=== PATIENT | male | born 1945 | race Caucasian/White ===

== ENCOUNTER 2018-11-17 16:50 | Emergency (ER) | payer BC, MEDICARE ==
[~2018-11-17 16:50] MED LIST: ALBU8.5H8 IH; AMLO5TAB9 PO; ATOR40TA69 PO; BISO5TAB2 PO; LEVO250T2 PO; METF-446 PO
[2018-11-17] MEDS ORDERED: CEFAZOLIN SODIUM 1 GM VIAL ONE (18:33)
[2018-11-17] MEDS ORDERED: LIDOCAINE HCL 1% 20 ML VIAL ONE (18:33)
[2018-11-17] MEDS ORDERED: TETANUS/DIPHTHERIA TOXOID [ADULT] 0.5 ML VIAL IM ONE (18:34)
[2018-11-17 19:00] LABS: BASOPHILS % (AUTO) 0.8 % (0.0-5.0); EOSINOPHILS % (AUTO) 2.8 % (0.0-8.0); HEMATOCRIT 30.9 % (42-54); LYMPHOCYTES % (AUTO) 14.5 % (21.0-51.0); MEAN CORPUSCULAR HEMOGLOBIN 30.4 pg (27.0-33.0); MEAN CORPUSCULAR HGB CONC 33.3 g/dL (32.0-36.0); MEAN CORPUSCULAR VOLUME 91.1 fL (79-99); MONOCYTES % (AUTO) 10.4 % (3.0-13.0); NEUTROPHILS % (AUTO) 71.5 % (40.0-77.0); PLATELET COUNT (AUTO) 160 K/uL (130-400); RED BLOOD CELL COUNT(AUTO) 3.39 MIL/uL (4.50-6.20); RED CELL DISTRIBUTION WIDTH 14.3 % (11.0-15.5); WHITE BLOOD COUNT (AUTO) 7.2 K/uL (4.8-10.8)
[2018-11-17 19:27] LABS: CREATININE 2.7 mg/dL (0.5-1.5)
[2018-11-17 19:32] LABS: ALBUMIN 3.8 g/dL (3.5-5.0); BILIRUBIN,TOTAL 0.8 mg/dL (0.2-1.0); TOTAL PROTEIN, SERUM 7.4 g/dL (6.0-8.3)
[2018-11-17 19:33] LABS: INR 1.09 (0.85-1.15); PARTIAL THROMBOPLASTIN TIME 27.3 SEC (26.3-35.5); PROTHROMBIN TIME 11.4 SEC (9.6-11.6)
[2018-11-17] MEDS ORDERED: OCTYL 2-CYANOACRYLATE 1 EACH TP ONE (20:18)
== END 2018-11-17 21:42 | disposition home or self-care (01) ==
LOC: EDH 16:50
DX: S98.141A Partial traumatic amputation of one right lesser toe, initial encounter (principal); I10 Essential (primary) hypertension; I25.10 Atherosclerotic heart disease of native coronary artery without angina pectoris; E11.9 Type 2 diabetes mellitus without complications; E78.5 Hyperlipidemia, unspecified; Z87.442 Personal history of urinary calculi; X58.XXXA Exposure to other specified factors, initial encounter; Y93.A1 Activity, exercise machines primarily for cardiorespiratory conditioning; Y92.89 Other specified places as the place of occurrence of the external cause; Y99.8 Other external cause status
CPT/HCPCS: 11730; 36415; 73660; 80053; 85025; 85610; 85730; 86850; 86900; 86901; 90471; 90714; 96372; 99285; A4218; J0690

== ENCOUNTER 2023-05-02 18:50 | Emergency (ER) | payer BC, OTHER ==
[~2023-05-02] VITALS: Ht 170.2 cm; Wt 72.6 kg
[~2023-05-02 18:50] MED LIST changes: +AMLO-257 PO; -AMLO5TAB9 PO; +BISO5TAB19 PO; -BISO5TAB2 PO
[2023-05-02 19:52] VITALS: BP 125/67; PULSE 77; RESP 20
[2023-05-02 21:57] LABS: BASOPHILS # (AUTO) 0.01 K/uL (0.00-0.20); BASOPHILS % (AUTO) 0.1 % (0.0-5.0); EOSINOPHILS # (AUTO) 0.02 K/uL (0.00-0.70); EOSINOPHILS % (AUTO) 0.2 % (0.0-8.0); HEMATOCRIT 45.1 % (42-54); IMMATURE GRANULOCYTE ABSOLUTE 0.07 K/uL (0-1); LYMPHOCYTES # (AUTO) 0.9 K/uL (1.0-4.8); LYMPHOCYTES % (AUTO) 7.5 % (21.0-51.0); MEAN CORPUSCULAR HEMOGLOBIN 32.1 pg (27.0-33.0); MEAN CORPUSCULAR HGB CONC 34.6 g/dL (32.0-36.0); MEAN CORPUSCULAR VOLUME 92.8 fL (79-99); MONOCYTES # (AUTO) 0.8 K/uL (0.1-1.0); MONOCYTES % (AUTO) 6.7 % (3.0-13.0); NEUTROPHILS # (AUTO) 10.5 K/uL (1.8-7.7); NEUTROPHILS % (AUTO) 84.9 % (40.0-77.0); PLATELET COUNT (AUTO) 164 K/uL (130-400); RED BLOOD CELL COUNT(AUTO) 4.86 MIL/uL (4.50-6.20); RED CELL DISTRIBUTION WIDTH 13.2 % (11.0-15.5); WHITE BLOOD COUNT (AUTO) 12.4 K/uL (4.8-10.8)
[2023-05-02 22:12] LABS: ALBUMIN 3.7 g/dL (3.5-5.0); BILIRUBIN,TOTAL 1.5 mg/dL (0.2-1.0); CREATININE 1.9 mg/dL (0.5-1.5); POTASSIUM 4.1 mmol/L (3.5-5.1); TOTAL PROTEIN, SERUM 7.3 g/dL (6.0-8.3)
[2023-05-02] MEDS ORDERED: IBUP-1493 PO (23:25)
== END 2023-05-02 23:50 | disposition home or self-care (01) ==
LOC: EDH 18:50
DX: S22.31XA Fracture of one rib, right side, initial encounter for closed fracture (principal); S09.90XA Unspecified injury of head, initial encounter; K80.20 Calculus of gallbladder without cholecystitis without obstruction; Z79.84 Long term (current) use of oral hypoglycemic drugs; Z85.46 Personal history of malignant neoplasm of prostate; W18.39XA Other fall on same level, initial encounter; Y92.89 Other specified places as the place of occurrence of the external cause; Y99.8 Other external cause status; Y93.01 Activity, walking, marching and hiking
CPT/HCPCS: 36415; 70450; 71250; 72125; 74176; 80053; 82150; 83690; 84484; 85025

== ENCOUNTER 2023-09-13 23:13 | Emergency (ER) | payer OTHER, BC ==
[~2023-09-13 23:13] MED LIST changes: +IBUP-1493 PO
[2023-09-14] MEDS ORDERED: MORPHINE 2 MG SYG IVP ONE
[2023-09-14 00:06] LABS: HEMATOCRIT 32.8 % (42-54); MEAN CORPUSCULAR HEMOGLOBIN 32.1 pg (27.0-33.0); MEAN CORPUSCULAR HGB CONC 35.4 g/dL (32.0-36.0); MEAN CORPUSCULAR VOLUME 90.9 fL (79-99); RED BLOOD CELL COUNT(AUTO) 3.61 MIL/uL (4.50-6.20); RED CELL DISTRIBUTION WIDTH 12.8 % (11.0-15.5); WHITE BLOOD COUNT (AUTO) 8.4 K/uL (4.8-10.8)
[2023-09-14 00:15] LABS: CREATININE 2.4 mg/dL (0.5-1.5); POTASSIUM 3.8 mmol/L (3.5-5.1)
[2023-09-14] MEDS ORDERED: OCTYL 2-CYANOACRYLATE 1 EACH TP ONE (00:40)
[2023-09-14 04:28] VITALS: BP 106/60; PULSE 72; RESP 16; O2SAT 98
[2023-09-19] MEDS ORDERED: RANO500T2 PO (06:47)
[2023-09-19] MEDS ORDERED: CLOP75TA32 PO (06:47)
[2023-09-19] MEDS ORDERED: LABE100T7 PO (06:48)
[2023-09-19] MEDS ORDERED: FLEC50TA3 PO (06:48)
[2023-09-19] MEDS ORDERED: AMLO2.5T4 PO (06:49)
[2023-09-19] MEDS ORDERED: ISOS30TA92 PO (06:49)
[2023-09-19] MEDS ORDERED: OMEP40CA21 PO (06:50)
[2023-09-19] MEDS ORDERED: PRED5TAB PO (06:51)
[2023-09-19] MEDS ORDERED: ABIR250T2 PO (06:52)
[2023-09-19] MEDS ORDERED: ferrous sulfate PO (06:54)
[2023-09-19] MEDS ORDERED: SODI650T PO (06:55)
[2023-09-19] MEDS ORDERED: POTA-200 PO (07:06)
[2023-09-19] MEDS ORDERED: VITA1TAB22 PO (07:07)
[2023-09-19] MEDS ORDERED: ATOR40TA71 PO (07:08)
[2023-09-19] MEDS ORDERED: EMPA25TA PO (07:09)
== END 2023-09-14 04:25 | disposition home or self-care (01) ==
LOC: EDH 23:13
DX: R07.81 Pleurodynia (principal); Z79.1 Long term (current) use of non-steroidal anti-inflammatories (NSAID); Z79.84 Long term (current) use of oral hypoglycemic drugs; Z85.46 Personal history of malignant neoplasm of prostate; W18.39XA Other fall on same level, initial encounter; Y93.89 Activity, other specified; Y92.89 Other specified places as the place of occurrence of the external cause; Y99.8 Other external cause status
CPT/HCPCS: 99285; 71250; 80048; 85027; 36415; 70450; 96374; 72170; 72125; J2270

== ENCOUNTER → 2023-11-14 | Outpatient (CLI) | payer OTHER ==
[~2023-11-14] MED LIST changes: +ABIR250T2 PO; +AMLO2.5T4 PO; +ATOR40TA71 PO; +CLOP75TA32 PO; +EMPA25TA PO; +FLEC50TA3 PO; +ISOS30TA92 PO; +LABE100T7 PO; +OMEP40CA21 PO; +POTA-200 PO; +PRED5TAB PO; +RANO500T2 PO; +SODI650T PO; +VITA1TAB22 PO; +ferrous sulfate PO
== END | disposition home or self-care (01) ==
LOC: RAH 13:40
PROVIDERS: ATTEND Internal Medicine Medical Oncology
DX: C79.51 Secondary malignant neoplasm of bone (principal); C61 Malignant neoplasm of prostate; M43.17 Spondylolisthesis, lumbosacral region
CPT/HCPCS: 72148; 73721

== ENCOUNTER 2024-04-27 08:57 | Emergency (ER) | payer OTHER, MEDICARE ==
[~2024-04-27] VITALS: Ht 170.2 cm; Wt 65.8 kg
[~2024-04-27 08:57] MED LIST changes: -ABIR250T2 PO; -ALBU8.5H8 IH; -AMLO-257 PO; -AMLO2.5T4 PO; -ATOR40TA71 PO; -BISO5TAB19 PO; -CLOP75TA32 PO; +DILT30TA3 PO; +ENZA40TA PO; +FERR-72 PO; -IBUP-1493 PO; -ISOS30TA92 PO; -LABE100T7 PO; -LEVO250T2 PO; -METF-446 PO; -POTA-200 PO; -RANO500T2 PO; +SEMA1PEN3 SQ; -SODI650T PO; +VITA-427 PO; -VITA1TAB22 PO; -ferrous sulfate PO
[2024-04-27 09:30] LABS: BASOPHILS # (AUTO) 0.03 K/uL (0.00-0.20); BASOPHILS % (AUTO) 0.3 % (0.0-5.0); EOSINOPHILS # (AUTO) 0.08 K/uL (0.00-0.70); EOSINOPHILS % (AUTO) 0.7 % (0.0-8.0); IMMATURE GRANULOCYTE ABSOLUTE 0.04 K/uL (0-1); LYMPHOCYTES # (AUTO) 0.9 K/uL (1.0-4.8); LYMPHOCYTES % (AUTO) 7.8 % (21.0-51.0); MEAN CORPUSCULAR HEMOGLOBIN 31.8 pg (27.0-33.0); MEAN CORPUSCULAR HGB CONC 34.2 g/dL (32.0-36.0); MONOCYTES # (AUTO) 0.9 K/uL (0.1-1.0); NEUTROPHILS % (AUTO) 82.8 % (40.0-77.0); PLATELET COUNT (AUTO) 238 K/uL (130-400); RED BLOOD CELL COUNT(AUTO) 3.87 MIL/uL (4.50-6.20); RED CELL DISTRIBUTION WIDTH 14.1 % (11.0-15.5); WHITE BLOOD COUNT (AUTO) 10.9 K/uL (4.8-10.8)
[2024-04-27 09:39] LABS: CREATININE 1.5 mg/dL (0.5-1.3); POTASSIUM 5.1 mmol/L (3.5-5.1)
[2024-04-27 11:45] LABS: APPEARANCE,URINE CLEAR (CLEAR); BILIRUBIN,URINE NEGATIVE (NEGATIVE); COLOR,URINE YELLOW (YELLOW); GLUCOSE, URINE (UA) >=1000 mg/dL (NEGATIVE); KETONES,URINE NEGATIVE (NEGATIVE); LEUKOCYTE ESTERASE ,URINE NEGATIVE Leu/uL (NEGATIVE); NITRATE,URINE NEGATIVE (NEGATIVE); OCCULT BLOOD,URINE NEGATIVE (NEGATIVE); PH,URINE 5.5 (5.0-8.0); PROTEIN,URINE 70 mg/dL (NEGATIVE); UROBILINOGEN,URINE 0.2 mg/dL (0.2-1.0)
[2024-04-27 11:47] LABS: ADD UA MICROSCOPIC YES
[2024-04-27 12:00] LABS: WBC,URINE 0-1 /HPF (0-1)
[2024-04-27] MEDS: 0.9% NACL 500ML IV.SOLN 500 ML IV ONE (13:06)
[2024-04-27] MEDS: cefTRIAXone 1G VIAL IVPB ONE (13:06)
[2024-04-27 14:42] VITALS: BP 120/77; PULSE 80; RESP 16; O2SAT 98
== END 2024-04-27 14:45 | disposition home or self-care (01) ==
LOC: EDH 08:57
DX: C61 Malignant neoplasm of prostate (principal); R33.8 Other retention of urine; C79.51 Secondary malignant neoplasm of bone; E86.0 Dehydration; E11.22 Type 2 diabetes mellitus with diabetic chronic kidney disease; N18.9 Chronic kidney disease, unspecified; Z79.84 Long term (current) use of oral hypoglycemic drugs; Z79.899 Other long term (current) drug therapy; Z87.442 Personal history of urinary calculi; Z98.890 Other specified postprocedural states
CPT/HCPCS: 99284; 96365; 80048; 85025; 83605; 81001; 36415; J7040; J0696